=== PATIENT | female | born 1970 | race Caucasian/White ===

== ENCOUNTER 2016-08-28 22:56 | Emergency (ER) | payer BC ==
[~2016-08-28] VITALS: Ht 167.6 cm; Wt 142.7 kg
[~2016-08-28 22:56] MED LIST: CIPRO 250MG TA250 MG PO; FLEXERIL10 MG PO; FLOMAX0.4 MG PO; FORT1000TA PO; LORTAB 5/500 501 TAB PO; MACROBID100 MG PO; MULTI VITAMINS1 TAB PO; NAPROSYN PO; NO HOME MEDICATIONS; NORCO 325 MG-7.1 TAB PO; VICODIN 5/5001 UDTAB PO; VITAMIN D 400400 IU PO; VITAMIN E 400 U4001 PO; ZOFRAN 4MG T4 MG/TAB PO
[2016-08-28] MEDS ORDERED: ASPIRIN 81M81 MG/TA2 PO (23:04)
[2016-08-29 00:05] LABS: ADJUSTED CALCIUM 9.6 mg/dL (8.4-10.2); ALANINE AMINOTRANSFERASE 57 U/L (9-52); ALBUMIN 4.2 gm/dL (3.5-5.0); ALKALINE PHOSPHATASE 78 U/L (50-136); ANION GAP 15 mmol/L (7-16); BILIRUBIN,TOTAL 0.7 mg/dL (0.0-1.0); BLOOD UREA NITROGEN 17 mg/dL (7-17); CALCIUM 9.8 mg/dL (8.4-10.2); CARBON DIOXIDE 25 mmol/L (22-30); CHLORIDE 101 mmol/L (98-107); CREATININE, serum 0.74 mg/dL (0.52-1.25); GLUCOSE 149 mg/dL (74-106); LIPASE 115 U/L (23-300); MAGNESIUM 1.9 mg/dL (1.6-2.3); POTASSIUM 3.9 mmol/L (3.4-5.0); SODIUM 140 mmol/L (137-145); TOTAL PROTEIN 7.5 gm/dL (6.4-8.2)
[2016-08-29 00:08] LABS: PH 5 (5-8); URINE APPEARANCE Cloudy; URINE BACTERIA Rare /hpf; URINE BILIRUBIN Negative (NEGATIVE); URINE BLOOD Negative (NEGATIVE); URINE COLOR Yellow; URINE GLUCOSE Negative (NEGATIVE); URINE KETONE Negative (NEGATIVE); URINE RBC 0-2 /hpf; URINE UROBILINOGEN Negative (NEGATIVE)
[2016-08-29 00:09] LABS: BASO % 0.7 % (0.0-2.0); EOS # 0.3 (0.0-0.7); EOS % 7.3 % (0-4.0); GRAN # 1.5 (1.4-6.5); GRAN % 33.6 % (42.2-75.2); HEMATOCRIT 41.2 % (37.0-47.0); HEMOGLOBIN 13.7 g/dl (12.5-16.0); LYMPH # 2.1 (1.2-3.4); MEAN CELL VOLUME 85 fl (80.0-100.0); MEAN CORPUSCULAR HEMOGLOBIN 28 pg (27.0-31.0); MEAN CORPUSCULAR HGB CONC 33 g/dl (33.0-37.0); MEAN PLATELET VOLUME 10.1 fl (7.4-10.4); MONO # 0.5 (0.1-0.6); MONO % 10.7 % (1.7-9.3); PLATELET COUNT 179 K/mm3 (130-400); RED BLOOD COUNT 4.83 M/mm3 (4.10-5.30); WHITE BLOOD COUNT 4.4 K/mm3 (4.8-10.8)
[2016-08-29 00:13] LABS: B-TYPE NATRIURETIC PEPTIDE 14 pg/mL (0-125)
[2016-08-29 00:18] LABS: TROPONIN-I < 0.012 ng/mL (0.000-0.034)
[2016-08-29] MEDS ORDERED: PHENERGAN W/CO120 M1 PO (01:08)
[2016-08-29] MEDS ORDERED: DOXYCYCLINE 10100 MG PO (01:09)
[2016-08-29 01:45] VITALS: BP 141/79; PULSE 82; TEMP 18
== END 2016-08-29 01:34 | disposition home or self-care (01) ==
LOC: COL.ER 22:56
PROVIDERS: Emergency Medicine
DX: J20.9 Acute bronchitis, unspecified (principal); E11.9 Type 2 diabetes mellitus without complications; Z79.84 Long term (current) use of oral hypoglycemic drugs
CPT/HCPCS: J1100

== ENCOUNTER → 2017-06-07 | Outpatient (CLI) | payer BC ==
[~2017-06-07] MED LIST changes: +ASPIRIN 81M81 MG/TA2 PO; +DOXYCYCLINE 10100 MG PO; +PHENERGAN W/CO120 M1 PO
== END ==
LOC: MC.RAD 13:30
DX: Z12.31 Encounter for screening mammogram for malignant neoplasm of breast (principal); Z85.3 Personal history of malignant neoplasm of breast; Z98.890 Other specified postprocedural states; Z98.82 Breast implant status

== ENCOUNTER → 2018-06-17 | Outpatient (CLI) | payer BC | LOC: MC.RAD 15:10 | DX: Z12.31 Encounter for screening mammogram for malignant neoplasm of breast (principal); Z98.890 Other specified postprocedural states; Z98.82 Breast implant status ==

== ENCOUNTER → 2019-07-31 | Outpatient (CLI) | payer BC | LOC: MC.RAD 13:23 | DX: Z12.31 Encounter for screening mammogram for malignant neoplasm of breast (principal); Z85.3 Personal history of malignant neoplasm of breast ==

== ENCOUNTER → 2020-08-25 | Outpatient (CLI) | payer BC | LOC: MC.RAD 06:59 | DX: Z12.31 Encounter for screening mammogram for malignant neoplasm of breast (principal); Z85.3 Personal history of malignant neoplasm of breast ==

== ENCOUNTER → 2021-09-25 | Outpatient (CLI) | payer BC | LOC: MC.RAD 13:00 | DX: Z12.31 Encounter for screening mammogram for malignant neoplasm of breast (principal) ==

== ENCOUNTER 2023-12-11 16:38 | Observation (INO) | payer SELFPAY ==
[~2023-12-11] VITALS: Ht 167.6 cm; Wt 134.8 kg
[2023-12-11] MEDS ORDERED: Morphine 4 MG/ML VIAL IV PRN ×2 (17:15→20:30)
[2023-12-11] MEDS ORDERED: Ondansetron 4 MG/2 ML VIAL IV PRN ×2 (17:15→20:30)
[2023-12-11 17:50] LABS: BASO % 0.4 % (0.0-2.0); EOS # 0.2 K/mm3 (0.0-0.7); EOS % 1.7 % (0.0-4.0); GRAN # 6.5 K/mm3 (1.4-6.5); GRAN % 68.8 % (42.2-75.2); HEMOGLOBIN 11.4 g/dl (12.5-16.0); LYMPH # 1.9 K/mm3 (1.2-3.4); LYMPH % 20.3 % (20.0-51.0); MEAN CELL VOLUME 82 fl (80.0-100.0); MEAN CORPUSCULAR HEMOGLOBIN 26 pg (27-31); MEAN CORPUSCULAR HGB CONC 31 g/dl (33.0-37.0); MONO # 0.8 K/mm3 (0.1-0.6); MONO % 8.4 % (1.7-9.3); PLATELET COUNT 287 K/mm3 (130-400); RED BLOOD COUNT 4.45 M/mm3 (4.10-5.30); REDCELL DISTRIBUTION WIDTH-CV 14.6 % (11.5-14.5)
[2023-12-11 17:51] LABS: HEMATOCRIT 36.5 % (37.0-47.0)
[2023-12-11 18:14] LABS: BILIRUBIN,TOTAL 0.4 mg/dL (0.2-1.2); CALCIUM 8.9 mg/dL (8.4-10.2); CREATININE, serum 2.1 mg/dL (0.57-1.11); POTASSIUM 4.5 mEq/L (3.5-4.5); TOTAL PROTEIN 7.5 g/dl (6.2-8.1)
[2023-12-11] MEDS ORDERED: HYDROmorphone 0.5 MG/0.5 ML SYRINGE IV ONE (19:45)
[2023-12-11] MEDS ORDERED: droPERidol 2.5 MG/ML 2 ML VIAL IV ONE (19:45)
[2023-12-11] MEDS ORDERED: D5 1/2 NS & 20 mEq KCl 1,000 ML IV ONE (20:30)
[2023-12-11 21:20] VITALS: BP 121/75; PULSE 68; TEMP 98.2
--- NOTE | 2023-12-11 22:00 | NUR ---
PT WAS ADMITTED TO ROOM 358 AT 2120. PT DANGLING AT THE BEDSIDE. RESPIRATIONS EVEN AND UNLABORED. NO SIGN OF DISTRESS AT TIME OF ADMISSION. PT AMBULATED TO THE BATHROOM WITH STANDBY ASSIST. VOIDED YELLOW URINE. URINE STRAINED GRIT NOTED.
[2023-12-12] VITALS (11 sets, daily range): BP systolic 96–126; BP diastolic 55–71; PULSE 72–80; TEMP 97.9–98.5
[2023-12-12] MEDS ORDERED: D5 1/2 NS & 20 mEq KCl 1,000 ML IV SCH (04:45)
[2023-12-12] MEDS ORDERED: Ondansetron 4 MG/2 ML VIAL IV PRN ×4 (04:45→11:15)
[2023-12-12] MEDS ORDERED: Lidocaine 2% (20 MG/ML) 20 ML UROJET UR ONE (07:20)
[2023-12-12] MEDS ORDERED: Iohexol 300 - 10 ML VIAL URETER-R ONE ×2 (08:00)
[2023-12-12] MEDS ORDERED: Ondansetron 4 MG/2 ML VIAL ONE (08:34)
[2023-12-12] MEDS ORDERED: dexAMETHasone 10 MG/ML VIAL ONE (08:34)
[2023-12-12] MEDS ORDERED: Lidocaine PF 2% (20 MG/ML) 5 ML VIAL ONE (08:34)
[2023-12-12] MEDS ORDERED: LR 1,000 ML IV SCH (09:00)
[2023-12-12] MEDS ORDERED: HYDROmorphone 1 MG/1 ML SYRINGE [PACU/SDC ONLY] IV PRN ×3 (09:00→11:15)
[2023-12-12] MEDS ORDERED: fentaNYL 50 MCG/ML 1 ML SYRINGE/VIAL [PACU/SDC ONLY] IV PRN ×2 (09:00→11:15)
[2023-12-12] MEDS ORDERED: hydrALAZINE 20 MG/ML 1 ML VIAL IV PRN ×2 (09:00→11:15)
[2023-12-12] MEDS ORDERED: fentaNYL 50 MCG/ML 2 ML VIAL ONE (09:14)
[2023-12-12] MEDS ORDERED: Naloxone 0.4 MG/ML VIAL IV PRN (09:45)
[2023-12-12] MEDS ORDERED: Acetaminophen 325 MG TAB PO PRN (09:45)
[2023-12-12] MEDS ORDERED: Hyoscyamine 0.125 MG Sublingual TAB SL PRN (09:45)
--- NOTE | 2023-12-12 10:15 | NUR ---
PATIENT ARRIVED FROM PACU, AWAKE ALERT AND ORIENTED. CALL LIGHT WITHIN REACH, POST OP VITAL SIGNS INITIATED. VSS. PATIENT DENIES ANY PAIN OR NEEDS AT THIS TIME. AT THIS TIME ONLY HAVE SOME DISCOMFORT. PATIENT SUCCESSFULLY VOIDED SOON AFTER ARRIVAL.
--- NOTE | 2023-12-12 11:45 | NUR ---
PATIENT IV RMEOVED. PATIENT POST OP VITAL STABLE. SHE DENEIS ANY NEEDS OR COMPALINTS. PATIENT VERBALIZES ALL POST OP INSTRUCTIONS, DISCHAGRE INSTRUCTIONS AND EDUCAITON. PATIENT TAKEN VIA WHEELCHAIR TO ER BY PCT WHERE SHE LEFT IN STABLE CONDITION WITH HER FRIEND.
== END 2023-12-12 11:45 | disposition home or self-care (01) ==
LOC: COL.ER 16:38 → SURG 17:53 → MEDICAL 21:01
PROVIDERS: Personal Emergency Response Attendant; ADMIT Urology
DX: N20.1 Calculus of ureter (principal); K21.9 Gastro-esophageal reflux disease without esophagitis; G47.33 Obstructive sleep apnea (adult) (pediatric); Z85.3 Personal history of malignant neoplasm of breast
CPT/HCPCS: C1769; C2617; G0378; J1100; J1170; J1790; J2270; J2405; J2704; J3010; J3480; Q9967

== ENCOUNTER → 2023-12-11 | Outpatient (CLI) | payer BC ==
[~2023-12-11] MED LIST changes: +BENICAR 20MG TA20 MG PO; +FLOMAX 0.40.4 MG/CAP PO; +GLUCOTROL10 MG PO; +INSLANT SQ; +LIPITOR 10MG10 MG PO; +MOBIC 7.5MG7.5 MG PO; +MOUNJARO2.5 MG/0.5 SQ; +NORCO 325 MG-51 TAB PO; +PRILOSEC 20MG20 MG PO; +PROMETHAZINE12.5 M5 PO; +TORADOL 10MG TA10 MG PO; +VITAMIN B COMPL1 T16 PO; +ZOFRAN ODT4 MG PO
== END ==
LOC: COL.RAD 05:58
DX: R10.11 Right upper quadrant pain (principal)

== ENCOUNTER → 2024-01-29 | Outpatient (CLI) | payer BC ==
[~2024-01-29] VITALS: Ht 167.6 cm; Wt 136.0 kg
[~2024-01-29] MED LIST changes: +TAMOXIFEN CITRA20 MG PO
[2024-01-29 14:04] VITALS: BP 131/79; TEMP 98.4
[2024-01-29 15:12] VITALS: BP 136/80; PULSE 80
--- NOTE | 2024-01-29 15:44 | NUR ---
PATIENT IS AWAKE AND ALERT. PATIENT ABLE TO TEACH BACK HOW TO USE HER NEW DRAIN. PATIENT HAS DISCHARGE INSTRUCTIONS AND IS ABLE TO TEACH BACK. PATIENT HAS COMPLETED HER RECOVERY TIME WITHOUT ANY ISSUES. PATIENT DENIES BEING IN PAIN AT THIS TIME. DRESSING ON NEW DRAIN REMAINS CLEAN, DRY, AND INTACT. ALL NEEDS MET. ESCORTED PATIENT DOWN TO PATIENT ENTRANCE WHERE HER FRIEND WAS THERE TO PROCESS SAFETY ENGINEERING TECHNOLOGIST THE PATIENT. PATIENT GOT INTO FRONT PASSENGER SEAT WITHOUT ANY ISSUES OR ASSISTANCE. PATIENT HAS ALL OF HER BELONGINGS AND PERSONAL ITEMS WITH HER.
== END ==
LOC: COL.RAD 13:21
DX: L76.34 Postprocedural seroma of skin and subcutaneous tissue following other procedure (principal)